=== PATIENT | female | born 1945 | race Caucasian/White ===

== ENCOUNTER 2017-10-14 21:03 | Inpatient (IN) | payer MEDICARE ==
[2017-10-14] VITALS (8 sets, daily range): BP systolic 108–129; BP diastolic 44–72; BMI 22.0
--- NOTE | ~2017-10-14 | OP ---
PATIENT NAME: KITTY SANTOS MEDICAL RECORD: [id number] :45 LOCATION:[facility].CV02 ADMISSION DATE:10/14/17 SURGEON: VINITA JANE MD DATE OF OPERATION: 10/15/2017 PROCEDURES: 1. PTCA and stent, RCA. 2. Intravascular ultrasound, RCA. 3. Left heart catheterization. 4. Selective coronary angiography. 5. Left ventriculogram. INDICATIONS: Angina, non-Q-wave myocardial infarction. PROCEDURE IN DETAIL: After informed consent was obtained and after detailed explanation of risks and benefits as well as alternative therapies, the patient was elected to proceed with angiogram and angioplasty. The right femoral area was prepped and draped in normal sterile fashion. The right femoral artery was cannulated via modified Seldinger technique with placement of 6-Frisian sheath. All catheters were exchanged through this sheath. FINDINGS: Left ventriculogram was performed in the standard 30-degree PAGE view, reveals preserved cardiac wall motion. Ejection fraction 50%. SELECTIVE CORONARY ANGIOGRAPHY: 1. Left main showed no significant angiographic disease. 2. Left anterior descending has 80% stenosis proximally. 3. Left circumflex has mild irregularities, but no flow-limiting stenosis. 4. Right coronary has long area of 70+ percent stenosis in the mid vessel, confirmed by intravascular ultrasound. PTCA AND STENT OF THE RCA: The stent used was 3.0 x 22 mm Integrity. Result was 0% residual stenosis. OVERALL IMPRESSION: Successful PTCA and stent of the RCA, going from long area of 70+ percent initial stenosis to 0% residual stenosis. Plan for PTCA and stent of the LAD in the near future. TRANSINT:[id number] Voice Confirmation ID: [id number] DOCUMENT ID: [id number] VINITA JANE MD at 1153 CC: [id number] DICTATION DATE: 10/15/17 1530 STONE ROUGHER: 10/15/17 1609 DIS IN 10/17/17 [place] [id number]
--- NOTE | ~2017-10-14 | HP ---
PATIENT: KITTY YU MEDICAL RECORD: [id number] ACCOUNT: [id number] LOCATION:[facility] D.CV02 : 45 ADMISSION DATE: 10/14/17 HISTORY AND PHYSICAL EXAMINATION DIAGNOSES: 1. Non-Q-wave myocardial infarction. 2. Chest pain. 3. Hypotension. HISTORY OF PRESENT ILLNESS: Mrs. Yu has no previous cardiac history. She was found by her daughter to have decreased responsiveness and low blood pressure. She presented to [facility], her systolic blood pressure was in the 70s. She was having chest pain at that time. Her troponin was positive for non-Q-wave myocardial infarction. She is not having chest pain now with fluid bolus her pressures in the 100 range. No previous cardiac history. PHYSICAL EXAMINATION: GENERAL APPEARANCE: Well-nourished, well-developed, appears stated age. Level of distress, comfortable. PSYCHIATRIC: Mental status, alert, normal affect. Orientation, oriented to time, place and person. EYES: Lids and conjunctiva, noninjected. No discharge, no pallor. ENT: Lips, teeth, gums, normal dentition. Oropharynx, no cyanosis, no pallor. NECK: Carotid arteries, bilateral normal upstroke, no bruits, no thrills. JUGULAR VEINS: No jugular venous pressure or distention. CERVICAL LYMPH NODES: Nontender, nonenlarged. THYROID: Not enlarged. Nontender. No nodules. LUNGS: Respiratory effort, unlabored. CHEST: Normal curvature. No thoracic deformity. No chest wall tenderness. Percussion, resonant. Auscultation, clear. No wheezes, no rales, no rhonchi. CARDIOVASCULAR: Precordial exam, nondisplaced. No heaves or pericardial thrills. Rate and rhythm, regular. Heart sounds, normal S1, normal S2. No S3, no gallop, no rub. Systolic murmur, not heard. Diastolic murmur, not heard. EXTREMITIES: No cyanosis, no edema. Peripheral pulses, full and equal in all extremities, except as noted. No bruits appreciated. ABDOMEN: Soft, nondistended. Normal aorta. No bruit. Nontender. No masses. Liver, nontender, no hepatomegaly. Spleen, nontender, no splenomegaly. MUSCULOSKELETAL: No joint tenderness. No joint swelling. No erythema. NEUROLOGICAL: Normal gait, normal strength, normal tone. SKIN: Warm and dry. OVERALL IMPRESSION: Non-Q-wave myocardial infarction, most likely she has hemodynamically significant coronary artery disease. We will proceed with coronary angiography. Further care depends upon the findings of the angiography. TRANSINT:[id number] Voice Confirmation ID: [id number] DOCUMENT ID: [id number] HISTORY AND PHYSICAL [id number] KITTY YU JEFFREY MD at 1153 CC: [id number] DICTATION DATE: 10/15/17 08 VACUUM BOTTLE ASSEMBLER: 10/15/17 0935 DIS IN 10/17/17 [place] [address] [place] [address]
--- NOTE | ~2017-10-14 | OP ---
PATIENT NAME: KITTY SANTOS MEDICAL RECORD: [id number] :45 LOCATION:[facility] D.CV02 ADMISSION DATE:10/14/17 SURGEON: VINITA JANE MD DATE OF OPERATION: 10/16/2017 PROCEDURES: 1. PTCA stent LAD. 2. PTCA LAD diagonal. 3. Selective coronary angiography. INDICATION: Angina and coronary artery disease. PROCEDURE IN DETAIL: After informed consent was obtained and after a detailed explanation of the risks, benefits as well as alternative therapies, the patient elected to proceed with angiogram and angioplasty. The right femoral area was prepped and draped in normal sterile fashion. The right femoral artery was cannulated via modified Seldinger technique with placement of 6-Georgian sheath. All catheters exchanged through this sheath. FINDINGS: The left anterior descending has a 70% to 80% stenosis proximally. This was addressed with a 2.5 x 12 mm Integrity stent. This caused plaque shift into the diagonal. We ballooned the diagonal with 2.0 balloon. Result was 0% residual throughout. OVERALL IMPRESSION: Successful percutaneous transluminal coronary angioplasty stent of the left anterior descending going from 70% to 80% initial stenosis to 0% residual. TRANSINT:[id number] Voice Confirmation ID: [id number] DOCUMENT ID: [id number] VINITA JANE MD at 1153 CC: [id number] DICTATION DATE: 10/16/17 1345 WINE SALES REPRESENTATIVE: 10/16/17 1419 DIS IN 10/17/17 [place] [id number]
--- NOTE | ~2017-10-14 | DS ---
PATIENT:KITTY YU :45 MEDICAL RECORD: [id number] DISCHARGE SUMMARY ADMISSION DATE: 10/14/17 DISCHARGE DATE: 10/17/17 DIAGNOSES: 1. Non-Q-wave myocardial infarction. 2. Coronary artery disease. 3. Percutaneous transluminal coronary angioplasty stent right coronary artery this admission. HOSPITAL COURSE: Mrs. Yu presents with anginal symptomatology, non-Q-wave myocardial infarction, underwent cardiac catheterization revealing critical disease of the RCA, underwent successful PTCA stent of the RCA, discharged home with the addition of aspirin and Plavix to her medical regimen. She will follow up with [facility] in 1 month. TRANSINT:[id number] Voice Confirmation ID: [id number] DOCUMENT ID: [id number] VINITA JANE MD at 1351 CC: [id number] DICTATION DATE: 12/10/17 1013 BOARDING SPECIALIST: 12/11/17 0123 DIS IN 10/17/17 [place] [id number] [place] [address]
--- NOTE | ~2017-10-14 | HEMODYNAMI ---
PATIENT:KITTY SANTOS MEDICAL RECORD: [id number] : 45 LOCATION:[facility] D.CV02 ADMISSION DATE: 10/14/17 Generatedon:10/15/201715:33 Patient name: KITTY SANTOS Patient #: [id number] SSN: : Date of study: 10/15/2017 Page: Of Hemodynamic Procedure Report Patient Data Patient Demographics Procedure consent was obtained First Name: KITTY Gender: Female Last Name: DANIELLE : 1945 Patient #: [id number] Age: 72 year(s) Race: Unknown Additional ID: [id number] Contact details Address: [address] State: [place] City: [place] Zip code: [address] Past Medical History Allergies Allergen Reaction Date Comments Reported IV contrast dye 10/15/2017 NSAIDs 10/15/2017 Other allergy 10/15/2017 cold meds Admission Admission Data Admission Date: 10/14/2017 Admission Time: 21:03 Room #: D.CV02 Procedure Procedure Types Cath Procedure Diagnostic Procedure [facility] w/Coronaries FFR/IVUS Intra-Coronary IVUS Initial PCI Procedure Coronary Stent Coronary Stent Initial Miscellaneous Procedures Moderate Sedation up to 30 minutes Procedure Description Procedure Date Procedure Date: 10/15/2017 Procedure Start Time: 15:03 Procedure End Time: 15:28 Procedure Staff Name Function Ggii Sofia MD Performing Physician Amelia Rasmussen RT Monitor Haydee Coley RN Nurse Shay Griffith RT Scrub Procedure Data Cath Procedure Fluoroscopy Diagnostic fluoroscopy Total fluoroscopy Time: 5.4 time: 5.4 min min Diagnostic fluoroscopy Total fluoroscopy dose: dose: 197.41 mGy 197.41 mGy Contrast Material Contrast Material Type Amount (ml) Isovue 300 0 Entry Location Entry Primary Successful Side Size Upsize Upsize Entry Closure Perdue ccessful Closure Location (Fr) 1 (Fr) 2 (Fr) Remarks Device Remarks Radial Right 6 Fr Mechanical artery Short Compression Femoral Right 5 Fr 6 Fr Exoseal artery Short Estimated blood loss: 10 ml Diagnostic catheters Device Type Used For End Catheter Placement DIAGNOSTIC [place] 110cm 5 LV Angiography Fr catheter ([id number]) MULTIPACK JL 4.0 5Fr Left Coronary catheter Angiography MULTIPACK 3DRC 5Fr Right Coronary catheter Angiography MULTIPACK Pigtail 5 Fr LV Angiography catheter Procedure Complications No complications Procedure Medications Medication Administration Route Dosage Oxygen NC 3 l/min Lidocaine 2% added to field 20 Heparin Flush Bag added to field 2 bags (1000units/500ml NS) 0.9% NaCl I.V. 100 ml/hr Versed I.V. 1 mg Fentanyl I.V. 50 mcg Heparin Bolus I.V. 4000 units Hemodynamics Rest Heart Rate: 64 (bpm) Snapshots Pre Cath Intra NCS Post Cath Vital Signs Time Heart Resp SPO2 etCO2 NIBP (mmHg) Rhythm Pain Sedation Rate (ipm) (%) (mmHg) Status Level (bpm) 14:43:50 63 28 94 128/62(102) NSR 0 (11) 10(A) , No pain 14:48:04 65 24 95 135/57(102) NSR 0 (11) 10(A) , No pain 14:52:18 63 27 96 131/60(114) NSR 0 (11) 10(A) , No pain 14:56:30 65 14 94 131/65(108) NSR 0 (11) 9(A) , No pain 15:00:42 74 16 92 0 137/64(106) NSR 0 (11) 9(A) , No pain 15:05:00 78 16 90 0 115/51(83) NSR 0 (11) 9(A) , No pain 15:09:12 72 15 91 0 108/46(81) NSR 0 (11) 9(A) , No pain 15:13:20 75 15 91 0 114/52(82) NSR 0 (11) 9(A) , No pain 15:17:26 75 14 90 0 118/60(83) NSR 0 (11) 9(A) , No pain 15:21:38 72 13 91 0 120/51(82) NSR 0 (11) 9(A) , No pain 15:25:48 74 20 90 0 127/59(98) NSR 0 (11) 9(A) , No pain Medications Time Medication Route Dose Verified Delivered Reason Notes E ffectiveness by by 14:47:32 Oxygen NC 3 Haydee Haydee used for l/min Brijesh Brijesh bodywork therapist RN 14:47:44 Lidocaine 2% added 20ml Haydee Haydee for local to vial Brijesh Brijesh anesthetic field RN RN 14:48:02 Heparin Flush added 2 Haydee Haydee used for Bag to bags Brijesh Briejsh procedure (1000units/500ml field RN RN NS) 14:48:16 0.9% NaCl I.V. 100 Haydee Haydee used for ml/hr Brijesh Brijesh bodywork therapist RN 14:53:29 Fentanyl I.V. 50 Haydee Haydee for mcg Brijesh Brijesh sedation RN RN 14:54:23 Versed I.V. 1 mg Haydee Haydee for Brijesh Brijesh sedation RN RN 15:12:31 Heparin Bolus I.V. 4000 Gigi Haydee verified units Bismark Coley with dr. DALILA sofia Procedure Log Time Note 14:15:07 Shay LANZA(R) () sent for patient. Start room use. 14:22:13 Time tracking: Regular hours 14:22:16 Plan of Care:Hemodynamics will remain stable., Cardiac rhythm will remain stable., Comfort level will be maintained., Respiratory function will remain adequate., Patient/ family verbilizes understanding of procedure., Procedure tolerated without complication., Recovers from procedure without complications.. 14:35:35 Patient received from CVICU to [facility] 3 Alert and oriented. Tansferred to table in Supine position. 14:42:40 Warm blankets applied, and ilya hugger turned on for patient comfort. 14:42:40 Correct patient and procedure confirmed by team. 14:42:41 Signed procedure consent form obtained from patient. 14:42:42 ECG and BP/O2 sat monitors applied to patient. 14:42:42 Vital chart was started 14:42:43 Full Disclosure recording started 14:42:49 Rhythm: sinus rhythm 14:44:47 H&P Date Dictated: 10/14/2017 Within 30 days and on chart.. 14:44:48 Pre-procedure instructions explained to patient. 14:44:49 Pre-op teaching completed and patient verbalized understanding. 14:44:50 Family in waiting room. 14:44:51 Patient NPO since Midnight. 14:45:00 Patient allergic to IV contrast dye 14:45:07 Patient allergic to NSAIDs 14:45:16 Patient allergic to Other allergycold meds 14:45:20 Is the patient allergic to Iodine/contrast media? Yes. 14:45:21 Was the patient premedicated? Yes 14:45:37 Is patient on blood thinner?Yes 14:45:39 ACC The patient was administered the following blood thiners within the last 24 hours: ACCPlavix 14:45:43 Patient diabetic? No. 14:45:51 Previous problem with sedation/anesthesia? No ? 14:45:52 Snore? Yes 14:45:53 Sleep apnea? No 14:45:54 Deviated septum? No 14:45:55 Opens mouth fully? Yes 14:45:55 Sticks out tongue? Yes 14:45:57 Airway obstruction? No ? 14:45:59 Dentures? No ? 14:46:04 Pre procedure: right dorsailis pedis pulse 2+ Normal; easily identifiable; not easily obliterated 14:46:06 Patient pain scale 0/10 ?. 14:47:05 IV patent on arrival in left forearm with 0.9% NaCl at [facility]. 14:47:32 Oxygen 3 l/min NC was administered by Haydee Coley RN; used for procedure; 14:47:44 Lidocaine 2% 20ml vial added to field was administered by Haydee Coley RN; for local anesthetic; 14:48:02 Heparin Flush Bag (1000units/500ml NS) 2 bags added to field was administered by Haydee Coley RN; used for procedure; 14:48:16 0.9% NaCl 100 ml/hr I.V. was administered by Haydee Coley RN; used for procedure; 14:50:36 Modified Slim's test Ulnar < 7 seconds 14:50:41 Lab results completed and on chart. 14:50:45 Alarms reviewed by R. N. 14:50:45 Sharps counted by scrub and verified by R.N. 14:50:50 Use device set Radial Dx or PCI 14:50:51 ACIST Syringe (01937) opened to sterile field. 14:50:52 Medline Cath Pack ([id number]) opened to sterile field. 14:50:53 Bag Decanter (2001S) opened to sterile field. 14:50:54 SHEATH 6FR Slender ([id number]) opened to sterile field. 14:50:54 DIAGNOSTIC WIRE .035 260cm J wire (538908) opened to sterile field. 14:50:55 ACIST Hand Control (79154) opened to sterile field. 14:50:56 ACIST Manifold (02953) opened to sterile field. 14:50:56 Tegaderm 4 x 4 (1626W) opened to sterile field. 14:51:55 Baseline sample Acquired. 14:52:01 Final Timeout: patient, procedure, and site verified with staff and physician. All members of the team are in agreement. 14:52:04 Right Radial & Right Groin site verified by team. 14:52:06 Physical assessment completed. ASA score P 2 - A patient with mild systemic disease as per Gigi Sofia MD. 14:52:09 Sedation plan: IV Moderate Sedation Medication:Versed, Fentanyl 14:53:29 Fentanyl 50 mcg I.V. was administered by Haydee Coley RN; for sedation; 14:54:23 Versed 1 mg I.V. was administered by Haydee Coley RN; for sedation; 15:03:05 Procedure started. 15:03:27 Local anesthetic to right radial artery with Lidocaine 2% by Gigi Sofia MD.INITIAL ACCESS ONLY 15:04:03 A 6 Fr Short sheath was inserted into the Right Radial artery 15:04:20 A DIAGNOSTIC [place] 110cm 5 Fr catheter (300283) was advanced over the wire and used for LV Angiography. unable to advance. Pt has radial loop. 15:05:32 Catheter removed. 15:05:43 Local anesthetic to right femoral artery with Lidocaine 2% by Gigi Sofia MD.ADDITIONAL ACCESS 15:05:51 Use device set Multipack Set 15:05:53 DIAGNOSTIC Multipack 5Fr catheter set (VC7150) opened to sterile field. 15:06:00 SHEATH 5FR [place] (MYQ336) opened to sterile field. 15:06:36 A 5 Fr sheath was inserted into the Right Femoral artery 15:07:19 A MULTIPACK JL 4.0 5Fr catheter was advanced over the wire and used for Left Coronary Angiography. 15:08:30 Catheter removed. 15:08:41 Use device set [facility] PCI 15:08:45 INFLATOR Merit BasixCompak (UP5936) opened to sterile field. 15:08:46 SHEATH 6FR [place] (ODV839) opened to sterile field. 15:08:47 WHISPER 300cm guide wire ([id number]) opened to sterile field. 15:09:16 A MULTIPACK 3DRC 5Fr catheter was advanced over the wire and used for Right Coronary Angiography. 15:09:44 Catheter removed. 15:11:11 A MULTIPACK Pigtail 5 Fr catheter was advanced over the wire and used for LV Angiography. 15:11:53 [place] IVUS Catheter (63271V) opened to sterile field. 15:11:59 LV gram done using PAGE 15:12:00 LV hemodynamics recorded. 15:12:03 Injector settings: Ml/sec: 10, Volume: 20, 15:12:08 EF : 60 % 15:12:26 GUIDE 6FR AR 1.0 SH catheter ([id number]) opened to sterile field. 15:12:31 Heparin Bolus 4000 units I.V. was administered by Haydee Coley RN; ; verified with dr. sofia 15:13:32 Sheath upsized to a 6 Fr Short. 15:14:22 6 Fr AR 1 SH guide catheter was inserted over the wire 15:16:24 GUIDE 6FR HS I SH catheter ([id number]) opened to sterile field. 15:16:29 Guide Catheter removed. pressure damping. 15:16:46 6 Fr HS 1 SH guide catheter was inserted over the wire 15:16:58 Whisper wire advanced. 15:17:53 IVUS catheter advanced over wire. 15:18:06 IVUS pass to RCA lesion performed. 15:18:49 IVUS catheter removed over wire. 15:21:43 Inflation Number: 1 A INTEGRITY RX 3.0 x 22 stent ([id number]) was prepped and advanced across the Mid RCA. The stent was deployed at 13 YEIMY for 0:06 (min:sec). 15:22:07 Stent catheter was removed intact over wire. 15:22:07 Wire removed. 15:22:07 Guide catheter removed. 15:23:00 Sheath removed intact; hemostasis achieved with Exoseal to the Right Femoral artery. 15:23:48 Fluoroscopy time 05.40 minutes. 15:23:56 Flurop Dose total: 197.41 15:23:56 Fluoroscopy dose: 197.41 mGy 15:24:02 Procedure ended.(Physican Out) 15:24:07 Contrast amount:Isovue 300 0ml. 15:24:09 Sharps counted by scrub and verified by R.N. 15:24:13 Insertion/operative site no bleeding no hematoma. 15:24:14 Sheath removed intact; hemostasis achieved with Mechanical Compression to the Right Radial artery. 15:24:15 Post-op/insertion site Right Femoral artery dressed using a 4 x 4 and Tegaderm. 15:24:17 TR band inflated with 12cc of air. 15:24:18 Post right femoral artery:stable, clean and dry 15:24:19 Post Procedure Pulses reassessed and unchanged 15:24:21 Post-procedure physical assessment completed. ASA score P 2 - A patient with mild systemic disease as per Gigi Sofia MD. 15:24:23 Post procedure rhythm: unchanged. 15:24:27 Estimated blood loss: 10 ml 15:24:28 Post procedure instruction explained to patient.Patient verbalizes understanding. 15:24:29 Patient needs reinforcement of post procedure teaching. 15:24:57 Procedure type changed to Cath procedure, Diagnostic procedure, LHC, LHC w/Coronaries, FFR/IVUS, Intra-Coronary IVUS Initial, PCI procedure, Coronary Stent, Coronary Stent Initial, Miscellaneous Procedures, Moderate Sedation up to 30 minutes 15:26:21 Procedure Complication : No complications 15:26:24 See physician's report for complete and final results. 15:26:33 EXOSEAL 6Fr (EX600) opened to sterile field. 15:27:16 Tegaderm 4 x 4 (1626W) opened to sterile field. 15:27:42 Procedure and supply charges have been captured, reviewed, submitted and are correct. 15:28:20 Vital chart was stopped 15::23 Report given to Pre/Post Procedure Room. 15:28:25 Patient transfered to Pre/Post Procedure Room with Stretcher. 15:28:28 Procedure ended. 15:28:28 Full Disclosure recording stopped 15:28:34 End room use (Document Last) Intervention Summary Intervention Notes Time ActionType Lesion and Equipment Action# Pressure Duration Attributes Used 15:21:43 Place stent Mid RCA INTEGRITY RX 1 13 00:06 3.0 x 22 stent ([id number]) Device Usage Item Name Manufacture Quantity Catalog Hospital Part Current Minimal Lot# / Number Charge Number Stock Stock Serial# Code ACIST Acist 1 83465 148077 778650 292469 20 Syringe Medical (09139) Systems Inc Medline Cath Cardinal 1 [id number] 933995 91823 615513 5 Pack Health ([id number]) Bag Decanter Microtek 1 2001S 365916 16639 739059 5 () Medical Inc. SHEATH 6FR Terumo 1 [id number] 984410 691590 939490 40 Slender ([id number]) DIAGNOSTIC St Qasim 1 302150 032794 100556 864747 30 WIRE .035 260cm J wire (044093) ACIST Hand Acist 1 99798 777246 677535 959817 5 Control Medical (63578) Systems Inc ACIST Acist 1 34373 340655 697014 995891 5 Manifold Medical (79808) Systems Inc Tegaderm 4 x 3M 2 1626W 796113 831626 654606 5 4 (1626W) DIAGNOSTIC Terumo 1 40-5013 526985 955137 989166 5 [place] 110cm 5 Fr catheter (475698) DIAGNOSTIC Cardinal 1 FB5661 690333 40941 783973 30 Multipack Health 5Fr catheter set (WN7653) SHEATH 5FR Terumo 1 OCR654 129026 395679 003518 40 [place] (MNP388) MULTIPACK JL Cardinal 1 129849 5 4.0 5Fr Health catheter INFLATOR Merit 1 TK5941 021285 935777 801251 15 Infinancials Medical BasixCompak (GL5884) SHEATH 6FR Terumo 1 KLD107 896146 111449 487594 40 [place] (WPS927) WHISPER Topete 1 [id number] 037062 986846 029323 5 300cm guide Vascular wire ([id number]) MULTIPACK Cardinal 1 477031 5 3DRC 5Fr Health catheter MULTIPACK Cardinal 1 357318 5 Pigtail 5 Fr Health catheter [place] 1 51317B 150507 750212 427446 8 [place] IVUS Catheter (77768Y) GUIDE 6FR AR Medtronic 1 [id number] 010041 12580 201284 1 1.0 SH catheter ([id number]) GUIDE 6FR HS Medtronic 1 [id number] 975213 20575 866896 1 I SH catheter ([id number]) INTEGRITY RX Medtronic 1 [id number] 524198 953917 503210 5 [id number] 3.0 x 22 stent ([id number]) EXOSEAL 6Fr Cardinal 1 EX600 725871 280252 967321 10 (EX600) Health Signature Audit [place] Stage Time Signature Unsigned Intra-Procedure 10/15/2017 Amelia 3:33:18 PM Counts RT(R) Signatures Monitor : Amelia Signature : Counts RT Date : Time : [address] [address]
--- NOTE | ~2017-10-14 | EC ---
PATIENT:KITTY SANTOS DATE OF SERVICE: 10/14/17 SEX: F MEDICAL RECORD: [id number] DATE OF : 45 LOCATION:[place] [address] AGE OF PATIENT: 72 ADMISSION DATE: 10/14/17 REFERRING PHYSICIAN: INTERPRETING PHYSICIAN: VINITA SOFIA MD ECHOCARDIOGRAM REPORT ECHO CHARGES 4 ECHO COMPLETE CLINICAL DIAGNOSIS: HI ECHOCARDIOGRAPHIC MEASUREMENTS (adult normal given) AC root (d.<3.7cm) 3.0 cm LV Septum d (<1.2 cm> 1.0 cm Valve Excursion 1.6 cm LV Septum (systole) 1.3 cm Left Atria (s.<4.0cm> 3.6 cm LVPW d(<1.2cm) 1.0 cm RV (d.<2.3cm) 3.1 cm LVPW (sytole) 1.4 cm LV diastole(<5.6CM) 3.9 cm MV E-F(>70mm/sec) cm LV systole 2.2 cm LVOT Diameter 1.8 cm MV exc.(>10mm) 1.5 cm Est.ejection fraction (50-75%) % Pericardial Effusion N DOPPLER: LVIT cm/sec A 92.0 cm/sec E 134 cm/sec LA cm/sec RVSP 19 mmHg LVOT 82 cm/sec AOP1/2T m/s Asc. Ao 132 cm/sec RVOT 81 cm/sec RA cm/sec PA 113 cm/sec AV Gradient Peak 6.95 mmHg AV Mean 3.51 mmHg AV Area 1.5 cm MV Gradient Peak 7.74 mmHg MV Mean 2.64 mmHg MV Area cm COMMENTS: Forensic Manager: Shonna BLAS Student Support Counselor: 1 Dr. Sofia TAPE# PACS DATE OF SERVICE: 10/15/2017 PROCEDURE: Echocardiogram. FINDINGS: 1. Left ventricular chamber size is within normal limits. Left ventricular systolic function is normal. Overall ejection fraction estimated at 60%. 2. Left atrium, right atrium, and right ventricle chamber sizes are within normal limit. 3. Valvular structures have normal structure and motion. ECHOCARDIOGRAM REPORT [id number] KITTY SANTOS 4. Doppler interrogation only reveals trace tricuspid regurgitation. No other valvular insufficiency or stenosis. 5. No evidence of pericardial effusion or left ventricular thrombus. TRANSINT:[id number] Voice Confirmation ID: [id number] DOCUMENT ID: [id number] VINITA SOFIA MD at 1153 CC: [id number] DICTATION DATE: 10/15/17 1345 WAFER PRODUCTION WORKER: 10/15/17 1712 DIS IN 10/17/17 [place] [id number] [place] [id number]
--- NOTE | ~2017-10-14 | HEMODYNAMI ---
PATIENT:KITTY SANTOS MEDICAL RECORD: [id number] : 45 LOCATION:[facility] D.CV02 ADMISSION DATE: 10/14/17 Generatedon:10/16/201713:45 Patient name: KITTY SANTOS Patient #: [id number] SSN: : Date of study: 10/16/2017 Page: Of Hemodynamic Procedure Report Patient Data Patient Demographics Procedure consent was obtained First Name: KITTY Gender: Female Last Name: DANIELLE : 1945 Patient #: [id number] Age: 72 year(s) Race: Unknown Additional ID: [id number] Contact details Address: [id number] [place] [address] lane State: [place] City: [place] Zip code: [address] Past Medical History Allergies Allergen Reaction Date Comments Reported IV contrast dye 10/15/2017 NSAIDs 10/15/2017 Other allergy 10/15/2017 cold meds Admission Admission Data Admission Date: 10/14/2017 Admission Time: 21:03 Room #: .CV02 Procedure Procedure Types Cath Procedure PCI Procedure Coronary Stent Coronary Stent Initial PTCA PTCA Additional Procedure Description Procedure Date Procedure Date: 10/16/2017 Procedure Start Time: 13:29 Procedure End Time: 13:42 Procedure Staff Name Function Amelia Rasmussen RT Monitor Tony Mckeon RN Nurse Gigi Sofia MD Performing Physician Adalgisa Padron RT Scrub Procedure Data Cath Procedure Fluoroscopy Diagnostic fluoroscopy Total fluoroscopy Time: 2.5 time: 2.5 min min Diagnostic fluoroscopy Total fluoroscopy dose: 146 dose: 146 mGy mGy Contrast Material Contrast Material Type Amount (ml) Isovue 300 29 Entry Location Entry Primary Successful Side Size Upsize Upsize Entry Closure Succes sful Closure Location (Fr) 1 (Fr) 2 (Fr) Remarks Device Remarks Femoral Right 6 Fr Exoseal artery Short Estimated blood loss: 5 ml Procedure Complications No complications Procedure Medications Medication Administration Route Dosage Oxygen NC 2 l/min Lidocaine 2% added to field 20 Heparin Flush Bag added to field 2 bags (1000units/500ml NS) 0.9% NaCl I.V. 100 ml/hr Benadryl I.V. 50 mg Versed I.V. 1 mg Fentanyl I.V. 50 mcg Heparin Bolus I.V. 4000 units Hemodynamics Rest Heart Rate: 66 (bpm) Snapshots Pre Cath Intra NCS Post Cath Vital Signs Time Heart Resp SPO2 etCO2 NIBP (mmHg) Rhythm Pain Sedation Rate (ipm) (%) (mmHg) Status Level (bpm) 13:14:51 63 18 92 31.2 128/54(100) NSR 0 (11) 10(A) , No pain 13:19:03 69 17 94 20.7 127/57(99) NSR 0 (11) 10(A) , No pain 13:23:15 76 15 94 20.7 130/55(99) NSR 0 (11) 10(A) , No pain 13:27:27 76 12 97 37.8 128/54(94) NSR 0 (11) 10(A) , No pain 13:31:39 76 15 96 36.4 127/55(99) NSR 0 (11) 10(A) , No pain 13:35:53 78 19 96 37.8 113/46(86) NSR 0 (11) 10(A) , No pain 13:40:02 76 16 95 34.1 111/47(89) NSR 0 (11) 10(A) , No pain Medications Time Medication Route Dose Verified Delivered Reason Notes Effectiveness by by 13:19:10 Oxygen NC 2 Gigi Buffie used for l/min Bismark Mckeon RN procedure 13:19:16 Lidocaine 2% added 20ml Gigi Gigi for local to vial Bismark Sofia MD anesthetic field 13:19:25 Heparin Flush added 2 Gigi Gigi used for Bag to bags Bismark Sofia MD procedure (1000units/500ml field NS) 13:19:33 Benadryl I.V. 50 mg Gigi Buffie used for pt has Bismark Mckeon RN procedure anaphlyaxis to contrast dye. 13:19:34 0.9% NaCl I.V. 100 Gigi Buffie Per physician ml/hr Bismark Mckeon RN 13:27:12 Versed I.V. 1 mg Gigi Buffie for sedation Tauth MD Mckoen RN 13:27:19 Fentanyl I.V. 50 Gigi Jimenez for sedation [facility] Bismark Mckeon RN 13:32:46 Heparin Bolus I.V. 4000 Gigi Jimenez for verifi ed units Bismark Mckeon RN anticoagulation with dr sofia Procedure Log Time Note 12:58:19 Amelia Counts RT(R) sent for patient. Start room use. 12:58:20 Time tracking: Regular hours 12:58:23 Plan of Care:Hemodynamics will remain stable., Cardiac rhythm will remain stable., Comfort level will be maintained., Respiratory function will remain adequate., Patient/ family verbilizes understanding of procedure., Procedure tolerated without complication., Recovers from procedure without complications.. 13:12:57 Warm blankets applied, and ilya hugger turned on for patient comfort. 13:12:57 Patient received from CVICU to CCL 2 Alert and oriented. Tansferred to table in Supine position. 13:12:58 Correct patient and procedure confirmed by team. 13:12:59 ECG and BP/O2 sat monitors applied to patient. 13:12:59 Signed procedure consent form obtained from patient. 13:13:01 Full Disclosure recording started 13:13:48 Vital chart was started 13:13:56 Rhythm: sinus bradycardia 13:14:39 H&P Date Dictated: 10/14/2017 Within 30 days and on chart.. 13:14:41 Pre-procedure instructions explained to patient. 13:14:42 Pre-op teaching completed and patient verbalized understanding. 13:14:43 Family in patients room. 13:14:44 Patient NPO since Midnight. 13:14:56 Is the patient allergic to Iodine/contrast media? Yes. 13:15:03 Is patient on blood thinner?Yes 13:15:05 ACC The patient was administered the following blood thiners within the last 24 hours: ACCPlavix 13:15:41 Patient diabetic? No. 13:15:47 Previous problem with sedation/anesthesia? No ? 13:16:06 Snore? Yes 13:16:07 Sleep apnea? No 13:16:09 Deviated septum? No 13:16:10 Opens mouth fully? Yes 13:16:12 Sticks out tongue? Yes 13:16:14 Airway obstruction? No ? 13:16:16 Dentures? No ? 13:16:18 Pre procedure: right dorsailis pedis pulse 2+ Normal; easily identifiable; not easily obliterated 13:16:20 Patient pain scale 0/10 ?. 13:16:27 IV patent on arrival in left forearm with 0.9% NaCl at [facility]. 13:16:29 Lab results completed and on chart. 13:16:31 Right groin area was prepped with chlora-prep and draped in sterile fashion 13:16:32 Sharps counted by scrub and verified by R.N. 13:16:32 Alarms reviewed by R. N. 13:18:14 Baseline sample Acquired. 13:19:10 Oxygen 2 l/min NC was administered by Tony Mckeon RN; used for procedure; 13:19:16 Lidocaine 2% 20ml vial added to field was administered by Gigi Sofia MD; for local anesthetic; 13:19:25 Heparin Flush Bag (1000units/500ml NS) 2 bags added to field was administered by Gigi Sofia MD; used for procedure; 13:19:33 Benadryl 50 mg I.V. was administered by Tony Mckeon RN; used for procedure; pt has anaphlyaxis to contrast dye. 13:19:34 0.9% NaCl 100 ml/hr I.V. was administered by Tony Mckeon RN; Per physician; 13:21:06 Use device set TAUTH PCI 13:21:08 SHEATH 6FR Olympia ([id number]) opened to sterile field. 13:21:09 INFLATOR Merit BasixCompak (SE9200) opened to sterile field. 13:21:12 CHOICE PT Extra Support 182cm wire ([id number]) opened to sterile field. 13:21:15 GUIDE 6FR XBLAD 3.5 catheter ([id number]) opened to sterile field. 13:21:24 Use device set CATH PACK 13:21:25 DIAGNOSTIC WIRE .035 260cm J wire (005620) opened to sterile field. 13:21:26 Bag Decanter (2002) opened to sterile field. 13:21:26 Medline Cath Pack ([id number]) opened to sterile field. 13:21:27 ACIST Manifold (97861) opened to sterile field. 13:21:28 ACIST Syringe (16387) opened to sterile field. 13:21:28 ACIST Hand Control (43500) opened to sterile field. 13:21:36 PERCUTANEOUS ENTRY 19GA needle opened to sterile field. 13:26:24 Zero performed for pressure channel P1 13:26:51 Final Timeout: patient, procedure, and site verified with staff and physician. All members of the team are in agreement. 13:26:53 Right groin site verified by team. 13:26:55 Physical assessment completed. ASA score P 2 - A patient with mild systemic disease as per Gigi Sofia MD. 13::58 Sedation plan: IV Moderate Sedation Medication:Versed, Fentanyl 13::12 Versed 1 mg I.V. was administered by Tony Mckeon RN; for sedation; 13::19 Fentanyl 50 mcg I.V. was administered by Tony Mckeon RN; for sedation; 13:29:19 Procedure started. 13:29:22 Local anesthetic to right femoral artery with Lidocaine 2% by Gigi Sofia MD.INITIAL ACCESS ONLY 13:30:53 A 6 Fr Short sheath was inserted into the Right Femoral artery 13:30:56 Zero performed for pressure channel P1 13:31:52 6 Fr XBLAD 3.5 guide catheter was inserted over the wire 13:32:46 Heparin Bolus 4000 units I.V. was administered by Tony Mckeon RN; for anticoagulation; verified with dr sofia 13:33:03 CHOICE PT ES wire advanced. 13:34:15 Inflation Number: 1 A INTEGRITY RX 2.5 x 12 stent ([id number]) was prepped and advanced across the Mid LAD. The stent was deployed at 13 YEIMY for 0:03 (min:sec). 13:34:42 Wire redirected to Diag. 13:35:00 Stent catheter was removed intact over wire. 13:36:23 Inflation number: 1 A EUPHORA 2.0 x 6 Balloon ([id number]) was prepped and advanced across the 1st Diag, then inflated to 11 YEIMY for 0:05 (min:sec). 13:36:35 Inflation number: 2 The EUPHORA 2.0 x 6 Balloon ([id number]) was reinflated across the 1st Diag, to 11 YEIMY for 0:07 (min:sec). 13:36:53 Balloon removed over the wire. 13:36:54 Guide catheter removed. 13:36:54 Wire removed. 13:37:00 Sheath removed intact; hemostasis achieved with Exoseal to the Right Femoral artery. 13:37:02 Procedure ended.(Physican Out) 13:37:12 EXOSEAL 6Fr (EX600) opened to sterile field. 13:37:20 Fluoroscopy time 02.50 minutes. 13:37:23 Fluoroscopy dose: 146 mGy 13:37:23 Flurop Dose total: 146 13:37:26 Contrast amount:Isovue 300 29ml. 13:37:28 Sharps counted by scrub and verified by R.N. 13:37:29 Insertion/operative site no bleeding no hematoma. 13:37:32 Post-op/insertion site Right Femoral artery dressed using a 4 x 4 and Tegaderm. 13:37:35 Post right femoral artery:stable, clean and dry 13:37:38 Post Procedure Pulses reassessed and unchanged 13:37:40 Post-procedure physical assessment completed. ASA score P 2 - A patient with mild systemic disease as per Gigi Sofia MD. 13:37:42 Post procedure rhythm: unchanged. 13:37:45 Estimated blood loss: 5 ml 13:37:47 Patient needs reinforcement of post procedure teaching. 13:37:47 Post procedure instruction explained to patient.Patient verbalizes understanding. 13:37:58 Procedure Complication : No complications 13:38:00 See physician's report for complete and final results. 13:38:40 Procedure and supply charges have been captured, reviewed, submitted and are correct. 13:39:58 Tegaderm 4 x 4 (1626W) opened to sterile field. 13:42:30 Vital chart was stopped 13:42:34 Report given to CVICU. 13:42:39 Patient transfered to CVICU with Bed. 13:42:46 Full Disclosure recording stopped 13:42:46 Procedure ended. 13:42:48 End room use (Document Last) 13:45:24 Procedure type changed to Cath procedure, PCI procedure, Coronary Stent, Coronary Stent Initial, PTCA, PTCA Additional Intervention Summary Intervention Notes Time ActionType Lesion and Equipment Action# Pressure Duration Attributes Used 13:34:15 Place stent Mid LAD INTEGRITY RX 1 13 00:03 2.5 x 12 stent ([id number]) 13:36:23 Inflate 1st Diag EUPHORA 2.0 1 11 00:05 balloon x 6 Balloon ([id number]) 13:36:35 Reinflate 1st Diag EUPHORA 2.0 2 11 00:07 balloon x 6 Balloon ([id number]) Device Usage Item Name Manufacture Quantity Catalog Number Hospital Part Current Mini [facility] Lot# / Charge Number Stock Stock Serial# Code SHEATH 6FR Terumo 1 [id number] 172632 477462 40 Olympia ([id number]) INFLATOR Merit 1 [id number] 489578 506806 489805 15 [facility] Medical BasixCompak (BD3521) CHOICE PT [place] 1 [id number] 646981 403703 554262 5 Extra Scientific Support 182cm wire ([id number]) GUIDE 6FR Cardinal 1 [id number] 725216 399235 674867 10 XBLAD 3.5 Health catheter (80526217) DIAGNOSTIC St Qasim 1 153044 159351 645274 631513 30 WIRE .035 260cm J wire (054820) Medline Cath Cardinal 1 [id number] 556046 11423 918825 5 Pack Health ([id number]) Bag Decanter Microtek 1 2001S 929770 35050 299346 5 (2001S) Medical Inc. ACIST Acist 1 67518 589533 838815 417797 5 Manifold Medical (44867) Systems Inc ACIST Hand Acist 1 39763 083472 472941 179598 5 Control Medical (48582) Systems Inc ACIST Acist 1 51352 283921 135035 698242 20 Syringe Medical (83883) Systems Inc PERCUTANEOUS Cook Medical 1 [id number] 424417 619356 5 ENTRY 19GA needle INTEGRITY RX Medtronic 1 [id number] 252712 435927 156366 5 [id number] 2.5 x 12 stent ([id number]) EUPHORA 2.0 Medtronic 1 [id number] 425949 930952 551790 5 [id number] x 6 Balloon ([id number]) EXOSEAL 6Fr Cardinal 1 EX600 050422 963074 718353 10 (EX600) Health Tegaderm 4 x 3M 1 1626W 053501 723975 608338 5 4 (1626W) Signature Audit [place] Stage Time Signature Unsigned Intra-Procedure 10/16/2017 Amelia Cisneros Counts 1:42:57 PM Counts RT(R) RT(R) 10/16/2017 1:45:10 PM Intra-Procedure 10/16/2017 Amelia 1:45:51 PM Counts RT(R) Signatures Monitor : Amelia Signature : Counts RT Date : Time : [address] [place] [address]
[2017-10-14] MEDS ORDERED: OXYBUTYNIN CHLOR5 MG PO (21:08)
[2017-10-14] MEDS ORDERED: PLAVIX75 MG PO ×2 (21:08)
[2017-10-14] MEDS ORDERED: LYRICA150 MG PO (21:09)
[2017-10-14] MEDS ORDERED: LIPITOR40 MG PO (21:09)
[2017-10-14] MEDS ORDERED: LOW DOSE ASPIRI81 M1 PO (21:10)
[2017-10-14] MEDS ORDERED: KRILL PO (21:12)
[2017-10-14] MEDS ORDERED: VITAMIN D5000 UNIT PO (21:12)
[2017-10-14] MEDS ORDERED: ACIDOPHILUS LAC1 CAP PO (21:13)
[2017-10-14] MEDS ORDERED: STIOLTO RESPIMAT4 GM INH (21:14)
[2017-10-15] VITALS (23 sets, daily range): BP systolic 94–157; BP diastolic 40–62; BMI 21.9
[2017-10-15 06:22] LABS: BASOPHILS 0.5 % (0-2); EOSINOPHILS 3.8 % (0-7); HEMATOCRIT 37.2 % (36.0-48.0); HEMOGLOBIN 11.3 g/dL (12-16); IMMATURE GRANULOCYTES 0.2 % (0-5); LYMPHOCYTES 30.9 % (15-50); MCH 29.1 pg (26.0-34.0); MCHC 30.4 g/dL (31.0-37.0); MCV 95.9 fL (80.0-100.0); MEAN PLATELET VOLUME 11.1 fL (7.4-10.4); MONOCYTES 11.1 % (2-11); NEUTROPHILS 53.5 % (40-80); PLATELET COUNT 116 10x3/uL (130-400); RBC 3.88 10x6/uL (4.00-5.40); RDW 17.5 % (11.5-14.5); WBC 5.9 10x3/uL (4.8-10.8)
[2017-10-15 06:34] LABS: CALC OSMOLALITY 281 mosm/kg (275-300); CALCIUM 8.5 mg/dL (8.5-10.1); CARBON DIOXIDE 30.7 mmol/L (21.0-32.0); CHLORIDE - SERUM 106 mmol/L (98-107); CREATININE - SERUM 0.7 mg/dL (0.6-1.3); GLUCOSE 96 mg/dL (74-106); POTASSIUM - SERUM 4.2 mmol/L (3.5-5.1); SODIUM 141 mmol/L (136-145); UREA NITROGEN 15 mg/dL (7-18); eGFR NON AFRICAN AMERICAN 87 mL/min (90-120)
[2017-10-15 17:39] LABS: BASOPHILS 0.3 % (0-2); EOSINOPHILS 1.2 % (0-7); HEMATOCRIT 40.9 % (36.0-48.0); HEMOGLOBIN 12.7 g/dL (12-16); IMMATURE GRANULOCYTES 0.3 % (0-5); LYMPHOCYTES 9.5 % (15-50); MCH 29.4 pg (26.0-34.0); MCHC 31.1 g/dL (31.0-37.0); MCV 94.7 fL (80.0-100.0); MONOCYTES 1.6 % (2-11); NEUTROPHILS 87.1 % (40-80); PLATELET COUNT 110 10x3/uL (130-400); RBC 4.32 10x6/uL (4.00-5.40)
[2017-10-15 17:42] LABS: WBC 7.7 10x3/uL (4.8-10.8)
[2017-10-16] VITALS (30 sets, daily range): BP systolic 103–133; BP diastolic 40–59
[2017-10-17 03:00] VITALS: BP 110/52
[2017-10-17 07:00] VITALS: BP 97/37
[2017-10-17 08:00] VITALS: BP 106/49
[2017-10-17 09:00] VITALS: BP 116/45
== END 2017-10-17 10:32 | disposition home or self-care (01) | DRG 249 ==
LOC: D.CVICU 21:03
PROVIDERS: Internal Medicine Interventional Cardiology
PROC: 4A023N7 Measurement of Cardiac Sampling and Pressure, Left Heart, Percutaneous Approach (ICD-10-PCS; 2017-10-15)
PROC: B2151ZZ Fluoroscopy of Left Heart using Low Osmolar Contrast (ICD-10-PCS; 2017-10-15)
PROC: B241ZZ3 Ultrasonography of Multiple Coronary Arteries, Intravascular (ICD-10-PCS; 2017-10-15)
PROC: 02703DZ Dilation of Coronary Artery, One Artery with Intraluminal Device, Percutaneous Approach (ICD-10-PCS; principal; 2017-10-15 12:30)
PROC: 02703DZ Dilation of Coronary Artery, One Artery with Intraluminal Device, Percutaneous Approach (ICD-10-PCS; 2017-10-16)
DX: I21.4 Non-ST elevation (NSTEMI) myocardial infarction (principal); I95.9 Hypotension, unspecified

== ENCOUNTER 2017-11-05 13:56 | Inpatient (IN) | payer MEDICARE ==
[~2017-11-05] VITALS: Ht 162.6 cm; Wt 46.4 kg
--- NOTE | ~2017-11-05 | CN ---
PATIENT NAME:KITTY YU MEDICAL RECORD: [id number] : 45 LOCATION:D. D.2131 ADMIT DATE: 11/05/17 ACCOUNT: [id number] CONSULTING PHYSICIAN: JACKIE NASCIMENTO MD REFERRING PHYSICIAN: ALY MALIK MD DATE OF CONSULTATION: 11/07/2017 CONSULT REQUESTING PHYSICIAN: Aly Malik MD REASON FOR CONSULTATION: Pneumonia, shortness of breath. HISTORY OF PRESENT ILLNESS: Ms. Yu is a 72-year-old female who has a cardiac catheterization more than a week ago, since then she has worsening shortness of breath with mild exertion. She has also orthopnea and PND. She has cough with very little sputum production. The patient is still everyday smoker. REVIEW OF SYSTEMS: As in history of present illness. PAST MEDICAL HISTORY: 1. 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 2. Chronic obstructive pulmonary disease. 3. Emphysema. 4. Chronic hypoxic respiratory failure, home oxygen dependent. 5. Anxiety. PAST SURGICAL HISTORY: 1. Cholecystectomy. 2. T&A. 3. Hysterectomy. 4. Cardiac catheterization and stent placement. ALLERGIES: SHE IS ALLERGIC TO NONSTEROIDAL ANTI-INFLAMMATORY UNCOATED, POSSIBLE ALLERGIC TO IV DYE. MEDICATIONS: On [employer] was reviewed. PERSONAL AND SOCIAL HISTORY: The patient is a current everyday smoker. She is a nondrinker. FAMILY HISTORY: Significant for cancer and diabetes. PHYSICAL EXAMINATION: GENERAL: Now, the patient is lying comfortably in bed. She is not in acute distress. VITAL SIGNS: The blood pressure is 104/47, pulse is 74, respirations 16, temperature 97.2, SpO2 is 97% on 3 liters nasal cannula. HEENT: Conjunctivae is pink, sclerae nonicteric. NECK: Supple. No JVD. CHEST: Bilateral crackles. No wheezing. HEART: Rhythm regular, normal sound, no murmur. ABDOMEN: Soft, bowel sounds present. No hepatosplenomegaly. RECTAL: Deferred. EXTREMITIES: No cyanosis, no clubbing, no pedal edema. SKIN: Warm, normal turgor. CONSULT REPORT [id number] KITTY YU CENTRAL NERVOUS SYSTEM: The patient is awake and alert. There is no obvious cranial nerve abnormality. The gait was not tested. IMAGING: Chest radiograph, there is increased interstitial marking bilaterally. LABORATORY DATA: CBC: WBC 9.1, hemoglobin 14.1, hematocrit 44.8, platelet count 175. Chemistry: Sodium 140, potassium 3.8, BUN is 16, creatinine 0.5. The cardiac enzymes within normal range. The BNP is 862. ABG: The pH was 7.34, pCO2 was 50.2, the pO2 was 76. IMPRESSION: 1. Cbbol-sq-fdwovqy hypoxic hypercapnic respiratory failure. 2. Pulmonary edema. 3. Small bilateral pleural effusion. 4. Congestive heart failure with elevated proBNP, most likely chronic systolic dysfunction. 5. Pneumonia, most likely community-acquired pneumonia. 6. Tobacco dependence syndrome. 7. Acute exacerbation of chronic obstructive pulmonary disease. 8. Postpolio syndrome. RECOMMENDATION: Decrease the dose of methylprednisolone IV, albuterol/ipratropium nebulizer, Brovana and budesonide nebulizers, start her on Lasix. Continue Zithromax and Rocephin. Detailed discussion with the patient and her sister. The patient will need a sleep study as well as PFT. The patient will need most likely BiPAP at night for her post-polio syndrome. Dr. Malik, thank you for involving me in the care of Ms. Yu. TRANSINT:[id number] Voice Confirmation ID: [id number] DOCUMENT ID: [id number] JACKIE NASCIMENTO MD at 1349 CC: ALY MALIK MD [id number] DICTATION DATE: 11/07/17 1313 DEVOPS ENGINEER: 11/07/17 1337 ADM [address] [place] [id number] [place] [address]
[~2017-11-05 13:56] MED LIST: ACIDOPHILUS LAC1 CAP PO; KRILL PO; LIPITOR40 MG PO; LOW DOSE ASPIRI81 M1 PO; LYRICA150 MG PO; OXYBUTYNIN CHLOR5 MG PO; PLAVIX75 MG PO; STIOLTO RESPIMAT4 GM INH; VITAMIN D5000 UNIT PO
[2017-11-05 14:49] LABS: APPEARANCE CLOUDY (CLEAR); BILIRUBIN NEGATIVE (NEGATIVE); COLOR YELLOW (YELLOW); GLUCOSE NEGATIVE (NEGATIVE); KETONE NEGATIVE (NEGATIVE); NITRITE NEGATIVE (NEGATIVE); PROTEIN NEGATIVE (NEGATIVE); UROBILINOGEN NORMAL (NORMAL)
[2017-11-05 14:52] LABS: BACTERIA MODERATE /hpf (NONE SEEN); EPITHELIAL CELLS 0-5 /hpf (0-5); WHITE CELLS - URINE 0-5 /hpf (0-5)
[2017-11-05 14:59] LABS: BASOPHILS 0.5 % (0-2); EOSINOPHILS 3.3 % (0-7); HEMATOCRIT 44.8 % (36.0-48.0); HEMOGLOBIN 14.1 g/dL (12-16); IMMATURE GRANULOCYTES 0.2 % (0-5); LYMPHOCYTES 20.9 % (15-50); MCH 30.5 pg (26.0-34.0); MCHC 31.5 g/dL (31.0-37.0); MEAN PLATELET VOLUME 11.3 fL (7.4-10.4); MONOCYTES 4.4 % (2-11); NEUTROPHILS 70.7 % (40-80); RBC 4.62 10x6/uL (4.00-5.40); RDW 17.9 % (11.5-14.5); WBC 9.1 10x3/uL (4.8-10.8)
[2017-11-05 15:00] LABS: PLATELET COUNT 175 10x3/uL (130-400)
[2017-11-05 15:06] LABS: APTT 30.2 SECONDS (22.8-39.4); INR 1.02 (0.85-1.17)
[2017-11-05 15:08] LABS: D-DIMER-QUANTITATIVE 0.8 ug/mLFEU (0.20-0.54)
[2017-11-05 15:09] LABS: ALKALINE PHOSPHATASE 102 U/L (46-116); ALT (SGPT) 15 U/L (10-68); BILIRUBIN - TOTAL 0.79 mg/dL (0.2-1.3); CALC OSMOLALITY 278 mosm/kg (275-300); CALCIUM 8.9 mg/dL (8.5-10.1); CARBON DIOXIDE 29.9 mmol/L (21.0-32.0); CHLORIDE - SERUM 105 mmol/L (98-107); CREATININE - SERUM 0.7 mg/dL (0.6-1.3); GLUCOSE 86 mg/dL (74-106); POTASSIUM - SERUM 4.2 mmol/L (3.5-5.1); PROTEIN - SERUM 7.2 g/dL (6.4-8.2); SODIUM 140 mmol/L (136-145); UREA NITROGEN 15 mg/dL (7-18); eGFR NON AFRICAN AMERICAN 87 mL/min (90-120)
[2017-11-05 15:12] LABS: CREATINE KINASE 56 UL (21-215)
[2017-11-05 15:47] LABS: CKMB 1.4 U/L (0.0-3.6); PRO BNP 862 pg/mL (0-125)
[2017-11-05 15:51] LABS: TROPONIN-I 0.125 ng/mL (0.000-0.060)
[2017-11-06] VITALS (8 sets, daily range): BP systolic 113–138; BP diastolic 37–64; Ht 162.6 cm; Wt 46.4 kg
[2017-11-06 06:30] LABS: BASOPHILS 0.2 % (0-2); EOSINOPHILS 0 % (0-7); HEMATOCRIT 42.6 % (36.0-48.0); HEMOGLOBIN 13.3 g/dL (12-16); IMMATURE GRANULOCYTES 0.4 % (0-5); MCH 29.6 pg (26.0-34.0); MCHC 31.2 g/dL (31.0-37.0); MEAN PLATELET VOLUME 11.3 fL (7.4-10.4); MONOCYTES 0.4 % (2-11); PLATELET COUNT 158 10x3/uL (130-400); RBC 4.49 10x6/uL (4.00-5.40); RDW 17.1 % (11.5-14.5)
[2017-11-06 06:33] LABS: MCV 94.9 fL (80.0-100.0); WBC 4.6 10x3/uL (4.8-10.8)
[2017-11-06 07:34] LABS: ALBUMIN 2.8 g/dL (3.4-5.0); ALKALINE PHOSPHATASE 92 U/L (46-116); ALT (SGPT) 14 U/L (10-68); CALC OSMOLALITY 282 mosm/kg (275-300); CALCIUM 8.7 mg/dL (8.5-10.1); CARBON DIOXIDE 27.2 mmol/L (21.0-32.0); CHLORIDE - SERUM 104 mmol/L (98-107); CREATININE - SERUM 0.5 mg/dL (0.6-1.3); GLUCOSE 146 mg/dL (74-106); POTASSIUM - SERUM 3.8 mmol/L (3.5-5.1); PROTEIN - SERUM 6.3 g/dL (6.4-8.2); SODIUM 140 mmol/L (136-145); UREA NITROGEN 16 mg/dL (7-18); eGFR NON AFRICAN AMERICAN > 90 mL/min (90-120)
[2017-11-06] MEDS ORDERED: PROAIR HFA8.5 GM INH (14:44)
[2017-11-06 15:17] LABS: CKMB 1.1 U/L (0.0-3.6); CREATINE KINASE 46 UL (21-215); TROPONIN-I 0.043 ng/mL (0.000-0.060)
[2017-11-06 20:01] LABS: CREATINE KINASE 48 UL (21-215); TROPONIN-I 0.046 ng/mL (0.000-0.060)
[2017-11-07 02:24] LABS: CKMB 1.1 U/L (0.0-3.6); CREATINE KINASE 67 UL (21-215); TROPONIN-I 0.028 ng/mL (0.000-0.060)
[2017-11-07 02:33] VITALS: BP 114/44
[2017-11-07 06:02] VITALS: BP 114/38
[2017-11-07 08:14] VITALS: BP 99/50
[2017-11-07 11:29] VITALS: BP 104/47
[2017-11-07 15:16] VITALS: BP 101/56
[2017-11-07 22:47] VITALS: BP 112/39
[2017-11-08 04:55] LABS: BASOPHILS 0 % (0-2); EOSINOPHILS 0 % (0-7); HEMATOCRIT 36.2 % (36.0-48.0); HEMOGLOBIN 11.4 g/dL (12-16); IMMATURE GRANULOCYTES 0.1 % (0-5); LYMPHOCYTES 7.1 % (15-50); MCH 29.7 pg (26.0-34.0); MCHC 31.5 g/dL (31.0-37.0); MCV 94.3 fL (80.0-100.0); MEAN PLATELET VOLUME 11.1 fL (7.4-10.4); MONOCYTES 2.9 % (2-11); NEUTROPHILS 89.9 % (40-80); PLATELET COUNT 151 10x3/uL (130-400); RBC 3.84 10x6/uL (4.00-5.40); RDW 18.1 % (11.5-14.5)
[2017-11-08 04:56] LABS: WBC 7.7 10x3/uL (4.8-10.8)
[2017-11-08 05:17] LABS: ANION GAP 11.9 mmol/L (8-16); CALCIUM 8.8 mg/dL (8.5-10.1); CARBON DIOXIDE 29.8 mmol/L (21.0-32.0); MAGNESIUM - SERUM 1.7 mg/dL (1.8-2.4)
[2017-11-08 05:18] LABS: CREATININE - SERUM 0.8 mg/dL (0.6-1.3)
[2017-11-08 05:19] LABS: POTASSIUM - SERUM 2.7 mmol/L (3.5-5.1)
[2017-11-08 06:39] VITALS: BP 125/43
[2017-11-08 08:27] VITALS: BP 133/43
[2017-11-08 10:58] VITALS: BP 134/51
[2017-11-08 14:46] VITALS: BP 122/60
[2017-11-08 19:00] VITALS: BP 119/44
[2017-11-09 04:00] VITALS: BP 128/42
[2017-11-09 05:37] LABS: BASOPHILS 0 % (0-2); EOSINOPHILS 0 % (0-7); HEMATOCRIT 37.3 % (36.0-48.0); HEMOGLOBIN 11.7 g/dL (12-16); IMMATURE GRANULOCYTES 0.3 % (0-5); LYMPHOCYTES 11.7 % (15-50); MCH 29.4 pg (26.0-34.0); MCHC 31.4 g/dL (31.0-37.0); MCV 93.7 fL (80.0-100.0); MEAN PLATELET VOLUME 10.4 fL (7.4-10.4); MONOCYTES 6.8 % (2-11); NEUTROPHILS 81.2 % (40-80); PLATELET COUNT 153 10x3/uL (130-400); RBC 3.98 10x6/uL (4.00-5.40); RDW 18.3 % (11.5-14.5); WBC 6.5 10x3/uL (4.8-10.8)
[2017-11-09 05:59] LABS: ANION GAP 14.1 mmol/L (8-16); CALCIUM 8.9 mg/dL (8.5-10.1); CARBON DIOXIDE 31.1 mmol/L (21.0-32.0); CREATININE - SERUM 0.8 mg/dL (0.6-1.3); MAGNESIUM - SERUM 1.8 mg/dL (1.8-2.4)
[2017-11-09 06:00] LABS: POTASSIUM - SERUM 3.2 mmol/L (3.5-5.1)
[2017-11-09 09:03] VITALS: BP 132/53
[2017-11-09 11:05] LABS: BASOPHILS 0 % (0-2); EOSINOPHILS 0 % (0-7); HEMATOCRIT 44.2 % (36.0-48.0); IMMATURE GRANULOCYTES 0.3 % (0-5); LYMPHOCYTES 6.5 % (15-50); MCHC 31.7 g/dL (31.0-37.0); MCV 94.6 fL (80.0-100.0); MEAN PLATELET VOLUME 10.9 fL (7.4-10.4); MONOCYTES 5.1 % (2-11); NEUTROPHILS 88.1 % (40-80); PLATELET COUNT 179 10x3/uL (130-400); RBC 4.67 10x6/uL (4.00-5.40); RDW 18.6 % (11.5-14.5)
[2017-11-09 11:07] LABS: WBC 9.6 10x3/uL (4.8-10.8)
[2017-11-09 16:00] VITALS: BP 111/49
[2017-11-09 21:44] VITALS: BP 111/40
[2017-11-10 00:30] VITALS: BP 125/46
[2017-11-10 04:30] VITALS: BP 122/41
[2017-11-10 05:28] LABS: ANION GAP 12.5 mmol/L (8-16); CALCIUM 8.9 mg/dL (8.5-10.1); CARBON DIOXIDE 32.2 mmol/L (21.0-32.0); CREATININE - SERUM 0.9 mg/dL (0.6-1.3); POTASSIUM - SERUM 3.7 mmol/L (3.5-5.1)
[2017-11-10 09:21] VITALS: BP 120/45
[2017-11-10] MEDS ORDERED: OMNICEF300 MG PO (13:18)
[2017-11-10] MEDS ORDERED: PREDNISONE10 MG PO (13:19)
[2017-11-10] MEDS ORDERED: FLORAJEN3 CAPS460 MG PO (13:23)
[2017-11-10] MEDS ORDERED: ZITHROMAX500 MG PO (13:23)
[2017-11-10 13:50] VITALS: BP 137/52
[2017-11-10 16:59] VITALS: BP 127/57
== END 2017-11-10 18:12 | disposition home or self-care (01) | DRG 193 ==
LOC: D.ER 13:56 → D.M2 20:44
PROVIDERS: Family Medicine; Internal Medicine Cardiovascular Disease; Internal Medicine Pulmonary Disease
DX: J18.9 Pneumonia, unspecified organism (principal); J96.22 Acute and chronic respiratory failure with hypercapnia; J96.21 Acute and chronic respiratory failure with hypoxia; I21.4 Non-ST elevation (NSTEMI) myocardial infarction; J44.0 Chronic obstructive pulmonary disease with (acute) lower respiratory infection; J44.1 Chronic obstructive pulmonary disease with (acute) exacerbation; I50.22 Chronic systolic (congestive) heart failure; G14 Postpolio syndrome; Z99.81 Dependence on supplemental oxygen; I25.10 Atherosclerotic heart disease of native coronary artery without angina pectoris; F41.9 Anxiety disorder, unspecified; F17.200 Nicotine dependence, unspecified, uncomplicated